=== PATIENT | male | born 1965 | race Caucasian/White ===

== ENCOUNTER → 2018-08-02 | Outpatient (CLI) | payer OTHER ==
[2018-08-02 13:11] LABS: HEMATOCRIT 41.9 % (42.0-52.0); HEMOGLOBIN 14.5 gm/dL (14.0-18.0); MCHC 34.6 g/dL (28.0-37.0); MCV 92.5 fL (80.0-100.0); MPV 7.1 fl. (7.2-11.1); RBC 4.53 mil/uL (4.50-6.00); RDW-CV 14.2 % (10.5-14.5); WBC 6.3 thou/uL (4.0-11.0)
[2018-08-02 13:34] LABS: ALBUMIN 3.6 g/dL (3.4-5.0); CALCIUM 8.5 mg/dL (8.5-10.1); POTASSIUM 3.6 mmol/L (3.5-5.1); TOTAL BILIRUBIN 0.5 mg/dL (<0.1-1.0); TOTAL PROTEIN 7.3 g/dL (6.4-8.2)
== END ==
LOC: M.LAB 12:45
PROVIDERS: Anesthesiology
DX: Z01.818 Encounter for other preprocedural examination (principal)